=== PATIENT | female | born 2000 | race African-American/Black ===

== ENCOUNTER 2019-07-14 05:27 | Emergency (ER) | payer OTHER ==
[~2019-07-14] VITALS: Ht 167.6 cm; Wt 118.2 kg
[2019-07-14 05:32] VITALS: Ht 167.6 cm; Wt 118.2 kg
[2019-07-14 06:01] VITALS: BP 122/74
== END 2019-07-14 06:01 | disposition home or self-care (01) ==
LOC: D.ER 05:27
DX: R55 Syncope and collapse (principal)

== ENCOUNTER → 2019-07-18 16:03 | Outpatient (CLI) | payer OTHER ==
[2019-07-14 05:32] VITALS: BMI 42.0
== END | disposition home or self-care (01) ==
LOC: D.MRI 07-15 16:30
PROVIDERS: ATTEND Family Medicine
DX: R55 Syncope and collapse (principal)